=== PATIENT | male | born 1985 | race Caucasian/White ===

== ENCOUNTER 2024-01-18 11:26 | Emergency (ER) | payer BC ==
[~2024-01-18] VITALS: Ht 170.2 cm; Wt 78.5 kg
[2024-01-18 11:40] VITALS: BP 128/78; TEMP 99.1; O2SAT 99
[2024-01-18] MEDS: BENZONATATE 100 MG CAPSULE PO STA (11:53)
[2024-01-18] MEDS ORDERED: IPRA12.9 INH (11:54)
[2024-01-18] MEDS ORDERED: BENZ-13 PO (11:54)
[2024-01-18] MEDS ORDERED: GUAI1TBM19 PO (11:54)
[2024-01-18] MEDS ORDERED: GUAIFENESIN/D-METHORPHAN HB 5 ML UDC ONE (11:58)
[2024-01-18] MEDS ORDERED: BENZONATATE 100 MG CAPSULE PO ONE (11:58)
[2024-01-18] MEDS: GUAIFENESIN/D-METHORPHAN HB 5 ML UDC PO ONE (12:01)
== END 2024-01-18 13:22 | disposition home or self-care (01) ==
LOC: ER 11:30
DX: R05.3 Chronic cough (principal); F17.200 Nicotine dependence, unspecified, uncomplicated; Z60.2 Problems related to living alone
CPT/HCPCS: 71250-TC